=== PATIENT | female | born 1960 | race African-American/Black ===

== ENCOUNTER 2017-08-21 08:42 | Emergency (ER) | payer MEDICARE, OTHER ==
[~2017-08-21] VITALS: Ht 170.2 cm; Wt 81.0 kg
[~2017-08-21 08:42] MED LIST: ASPI-1160 PO; CARV12.545 PO; FURO-151 PO; LISI20TA PO; POTASSIUM PO; PREN-88 PO
[2017-08-21 11:43] VITALS: BP 123/76
== END 2017-08-21 11:10 | disposition home or self-care (01) ==
LOC: ER 08:42
DX: Z04.1 Encounter for examination and observation following transport accident (principal); I50.9 Heart failure, unspecified; Z79.82 Long term (current) use of aspirin; V49.88XA Car occupant (driver) (passenger) injured in other specified transport accidents, initial encounter; Y93.89 Activity, other specified; Y92.488 Other paved roadways as the place of occurrence of the external cause; Y99.8 Other external cause status
CPT/HCPCS: 99283

== ENCOUNTER 2020-01-25 14:07 | Emergency (ER) | payer MEDICARE, MEDICAID ==
[~2020-01-25] VITALS: Ht 167.6 cm; Wt 78.0 kg
[2020-01-25] MEDS ORDERED: ACETAMINOPHEN 500MG TABLET PO ONE (15:00)
[2020-01-25 15:32] LABS: BASOPHILS % 0.8 % (0.0-2.0); EOSINOPHILS % 2.8 % (0.0-5.0); HEMATOCRIT. 34.4 % (36.0-48.0); HEMOGLOBIN. 11.5 g/dL (12.0-16.0); LYMPHOCYTES % 30.5 % (20.0-50.0); MEAN CORPUSCULAR HEMOGLOBIN 27.3 pg (28.0-32.0); MEAN CORPUSCULAR VOLUME 81.8 fL (81.0-99.0); MEAN PLATELET VOLUME 8.1 fl (7.4-10.4); MONOCYTES % 7.5 % (2.0-8.0); NEUTROPHILS % 58.4 % (40.0-76.0); PLATELET 341 x1000/uL (130-400); RED BLOOD CELL COUNT 4.21 mill/uL (4.2-5.4); RED CELL DISTRIBUTION WIDTH 13.5 % (11.6-14.6)
[2020-01-25 15:39] LABS: INR 1.1; PROTHROMBIN TIME 11.8 sec (9.6-11.0)
[2020-01-25 15:41] LABS: CHLORIDE 101 mEq/L (98-107)
[2020-01-25] MEDS ORDERED: METRONIDAZOLE 500MG TABLET PO ONE (18:30)
[2020-01-25] MEDS ORDERED: CEFTRIAXONE 1 G PREMIX 50 ML IV ONE (18:30)
[2020-01-25] MEDS ORDERED: SODIUM CHLORIDE 0.9% 1,000 ML IV ONE (18:30)
[2020-01-25 19:14] VITALS: BP 120/65
[2020-01-25] MEDS ORDERED: IOHEXOL-300 100 ML BOTTLE ONE (20:48)
== END 2020-01-25 20:13 | disposition home or self-care (01) ==
LOC: ER 14:14
DX: K59.00 Constipation, unspecified (principal); K62.89 Other specified diseases of anus and rectum; I50.9 Heart failure, unspecified; N28.9 Disorder of kidney and ureter, unspecified; Z91.018 Allergy to other foods; Z90.710 Acquired absence of both cervix and uterus
CPT/HCPCS: 36415; 74177; 80053; 83690; 85025; 85610; 96365; 99284; J0696; J7030; Q9967

== ENCOUNTER 2020-02-10 16:27 | Emergency (ER) | payer MEDICARE, OTHER ==
[~2020-02-10] VITALS: Ht 167.6 cm; Wt 73.0 kg
[2020-02-10 16:46] VITALS: BP 104/71
[2020-02-10 19:20] LABS: CLARITY URINE CLOUDY (CLEAR); COLOR URINE DARK YELLOW (YELLOW); KETONES URINE NEGATIVE (NEGATIVE); LEUKOCYTE ESTERASE URINE 1+ (NEGATIVE); NITRITE URINE NEGATIVE (NEGATIVE); OCCULT BLOOD URINE NEGATIVE (NEGATIVE); PROTEIN URINE NEGATIVE (NEGATIVE); UROBILINOGEN URINE 0.2 E.U./dL (0.2-1.0)
[2020-02-10 19:25] LABS: BASOPHILS % 0.7 % (0.0-2.0); EOSINOPHILS % 1.5 % (0.0-5.0); HEMATOCRIT. 39.1 % (36.0-48.0); HEMOGLOBIN. 13.2 g/dL (12.0-16.0); LYMPHOCYTES % 34.5 % (20.0-50.0); MEAN CORPUSCULAR HEMOGLOBIN 28.1 pg (28.0-32.0); MONOCYTES % 7.7 % (2.0-8.0); NEUTROPHILS % 55.6 % (40.0-76.0); PLATELET 337 x1000/uL (130-400); RED BLOOD CELL COUNT 4.72 mill/uL (4.2-5.4); RED CELL DISTRIBUTION WIDTH 14.4 % (11.6-14.6)
[2020-02-10 19:31] LABS: CHLORIDE 100 mEq/L (98-107)
[2020-02-10 20:00] LABS: PROTHROMBIN TIME 11.3 sec (9.6-11.0)
[2020-02-10] MEDS ORDERED: POTASSIUM CHLORIDE 20MEQ TABLET SR PO ONE (23:00)
== END 2020-02-10 23:50 | disposition home or self-care (01) ==
LOC: ER 16:40
DX: N39.0 Urinary tract infection, site not specified (principal); R42 Dizziness and giddiness; R19.7 Diarrhea, unspecified; I13.0 Hypertensive heart and chronic kidney disease with heart failure and stage 1 through stage 4 chronic kidney disease, or unspecified chronic kidney disease; N18.9 Chronic kidney disease, unspecified; I50.9 Heart failure, unspecified; Z90.710 Acquired absence of both cervix and uterus; Z79.82 Long term (current) use of aspirin; Z91.018 Allergy to other foods
CPT/HCPCS: 36415; 71045; 74176; 80053; 81003; 82270; 83880; 85025; 87015; 87045; 87427; 87449; 87493; 89055; 93005; 99291

== ENCOUNTER 2020-04-18 10:33 | Emergency (ER) | payer MEDICARE, MEDICAID, OTHER ==
[~2020-04-18] VITALS: Ht 167.6 cm; Wt 68.0 kg
[2020-04-18] MEDS ORDERED: MORPHINE SULFATE 4 MG/ML CPJ (NOT FOR IM USE) IV STA (10:43)
[2020-04-18 11:26] LABS: CHLORIDE 102 mEq/L (98-107)
[2020-04-18 11:28] LABS: BASOPHILS % 0.1 % (0.0-2.0); EOSINOPHILS % 4.6 % (0.0-5.0); HEMATOCRIT. 27.3 % (36.0-48.0); HEMOGLOBIN. 9.5 g/dL (12.0-16.0); LYMPHOCYTES % 12.8 % (20.0-50.0); MEAN CORPUSCULAR HEMOGLOBIN 28.4 pg (28.0-32.0); MEAN CORPUSCULAR VOLUME 81.9 fL (81.0-99.0); MEAN PLATELET VOLUME 7.9 fl (7.4-10.4); MONOCYTES % 3.3 % (2.0-8.0); NEUTROPHILS % 79.2 % (40.0-76.0); PLATELET 145 x1000/uL (130-400); RED BLOOD CELL COUNT 3.33 mill/uL (4.2-5.4); RED CELL DISTRIBUTION WIDTH 13.6 % (11.6-14.6)
[2020-04-18 12:19] VITALS: BP 110/59
== END 2020-04-18 12:15 | disposition home or self-care (01) ==
LOC: ER 10:48
DX: R55 Syncope and collapse (principal); N28.9 Disorder of kidney and ureter, unspecified; Z85.048 Personal history of other malignant neoplasm of rectum, rectosigmoid junction, and anus; Z92.21 Personal history of antineoplastic chemotherapy; Z90.710 Acquired absence of both cervix and uterus; Z79.82 Long term (current) use of aspirin
CPT/HCPCS: 36415; 71045; 80053; 83880; 84484; 85025; 93005; 96374; 99285; J2270

== ENCOUNTER 2020-05-02 11:37 | Inpatient (IN) | payer MEDICARE, OTHER ==
[~2020-05-02] VITALS: Ht 165.1 cm; Wt 64.7 kg
[2020-05-02] MEDS ORDERED: SODIUM CHLORIDE 0.9% 1,000 ML IV ONE ×2 (12:11→19:30)
[2020-05-02] MEDS ORDERED: ONDANSETRON HCL 4MG/2ML INJ IV STA (12:11)
[2020-05-02] MEDS ORDERED: MORPHINE SULFATE 4 MG/ML CPJ (NOT FOR IM USE) IV STA (12:11)
[2020-05-02 13:31] LABS: HEMATOCRIT. 29.3 % (36.0-48.0); HEMOGLOBIN. 10.5 g/dL (12.0-16.0); MEAN CORPUSCULAR HEMOGLOBIN 29.1 pg (28.0-32.0); MEAN CORPUSCULAR VOLUME 81.2 fL (81.0-99.0); MEAN PLATELET VOLUME 7.4 fl (7.4-10.4); PLATELET 133 x1000/uL (130-400); RED CELL DISTRIBUTION WIDTH 12.9 % (11.6-14.6)
[2020-05-02 13:32] LABS: CHLORIDE 91 mEq/L (98-107)
[2020-05-02 14:42] LABS: INR 1.6; PARTIAL THROMBOPLASTIN TIME 26.8 sec (23.4-31.0); PROTHROMBIN TIME 17.2 sec (9.6-11.0)
[2020-05-02 14:46] LABS: PLATELET ESTIMATE NORMAL
[2020-05-02 15:16] LABS: D-DIMER > 35.20 mg/L FEU (<0.50)
[2020-05-02] MEDS ORDERED: ENOXAPARIN 60MG/0.6ML SYR SUBCUT ONE (15:30)
[2020-05-02] MEDS ORDERED: ASPIRIN 81MG TABLET PO ONE (15:30)
[2020-05-02] MEDS ORDERED: METRONIDAZOLE 500 MG PREMIX 100 ML IV ONE (15:45)
[2020-05-02] MEDS ORDERED: LEVOFLOXACIN 750MG PREMIX 150 ML IV ONE (15:45)
[2020-05-02] MEDS ORDERED: GUAIFENESIN 200MG/10ML SUGAR FREE UDC PO PRN (16:00)
[2020-05-02] MEDS ORDERED: ONDANSETRON HCL 4MG/2ML INJ IV PRN (16:00)
[2020-05-02] MEDS ORDERED: IPRATROPIUM/ALBUTEROL 0.5-3(2.5)MG/3ML NEB ORI PRN (16:00)
[2020-05-02] MEDS ORDERED: MAGNESIUM/ALUMINUM HYDROXIDE/SIMETHICONE 30ML UDC PO PRN (16:00)
[2020-05-02] MEDS ORDERED: FILGRASTIM 300 MCG/ML VIAL SUBCUT SCH (16:00)
[2020-05-02] MEDS ORDERED: NITROGLYCERIN 0.4MG TABLET SL SL PRN (16:00)
[2020-05-02] MEDS ORDERED: DOCUSATE SODIUM 100MG CAPSULE PO PRN (16:00)
[2020-05-02] MEDS ORDERED: ACETAMINOPHEN 325MG TABLET PO PRN ×2 (16:00)
[2020-05-02] MEDS ORDERED: CLONIDINE 0.1MG TABLET PO PRN (16:00)
[2020-05-02] MEDS ORDERED: TRAMADOL 50MG TABLET PO PRN (16:00)
[2020-05-02] MEDS ORDERED: CEFTRIAXONE 1 G PREMIX 50 ML IV SCH (18:00)
[2020-05-02] MEDS ORDERED: AZITHROMYCIN 500 MG in DEXT 5% WATER 250 ML IV SCH (18:00)
[2020-05-02 19:23] LABS: CLARITY URINE TURBID (CLEAR); COLOR URINE DK YELLOW (YELLOW); KETONES URINE NEGATIVE (NEGATIVE); LEUKOCYTE ESTERASE URINE 3+ (NEGATIVE); NITRITE URINE NEGATIVE (NEGATIVE); OCCULT BLOOD URINE 3+ (NEGATIVE); PH URINE 7.5 (4.5-8.0); PROTEIN URINE 3+ (NEGATIVE); SPECIFIC GRAVITY URINE 1.011 (1.005-1.030); UROBILINOGEN URINE 0.2 E.U./dL (0.2-1.0)
[2020-05-02] MEDS ORDERED: FAMOTIDINE 20MG TABLET PO SCH (21:00)
[2020-05-02] MEDS ORDERED: ENOXAPARIN 60MG/0.6ML SYR SUBCUT SCH (21:00)
[2020-05-02] MEDS ORDERED: FILGRASTIM-TBO 300 MCG/0.5 ML SYRINGE SQ SCH (21:00)
[2020-05-02 23:08] VITALS: BP 133/75
[2020-05-03] MEDS: ASCORBIC ACID 500 MG TABLET PO SCH ×3 (00:26→20:34)
[2020-05-03] MEDS: METRONIDAZOLE 500 MG PREMIX 100 ML IV SCH ×3 (02:00→20:34)
[2020-05-03 04:00] VITALS: BP 121/77
[2020-05-03 06:54] LABS: CREATINE KINASE MB FRACTION 3.4 ng/mL (0.5-3.6)
[2020-05-03] MEDS: ENOXAPARIN 60MG/0.6ML SYR SUBCUT SCH ×2 (07:46→17:55)
[2020-05-03 08:00] VITALS: BP 123/73
[2020-05-03] MEDS ORDERED: PNEUMOCOCCAL 23-VAL P-SAC VAC 0.5 ML IM ONE (08:00)
[2020-05-03] MEDS: ZINC SULFATE 220 MG ( 50 ) CAPSULE PO SCH (08:02)
[2020-05-03 09:00] VITALS: BP 123/73
[2020-05-03] MEDS ORDERED: ENOXAPARIN 40MG/0.4ML SYR SUBCUT SCH (09:00)
[2020-05-03] MEDS: PANTOPRAZOLE SODIUM 40 MG/VIAL IV SCH (10:59)
[2020-05-03] MEDS: ASPIRIN 325MG EC TABLET PO SCH (11:00)
[2020-05-03 12:00] VITALS: BP 117/62
[2020-05-03 12:14] LABS: HEMATOCRIT. 29.3 % (36.0-48.0); HEMOGLOBIN. 10.4 g/dL (12.0-16.0); MEAN CORPUSCULAR HEMOGLOBIN 28.6 pg (28.0-32.0); MEAN CORPUSCULAR VOLUME 80.7 fL (81.0-99.0); MEAN PLATELET VOLUME 7.5 fl (7.4-10.4); PLATELET 156 x1000/uL (130-400); RED BLOOD CELL COUNT 3.63 mill/uL (4.2-5.4)
[2020-05-03 13:12] LABS: PLATELET ESTIMATE NORMAL
[2020-05-03 16:00] VITALS: BP 133/83
[2020-05-03 16:30] LABS: CHLORIDE 98 mEq/L (98-107)
[2020-05-03 16:37] LABS: PHOSPHORUS 2.8 mg/dL (2.5-4.9)
[2020-05-03 16:40] LABS: LDL CHOLESTEROL 44 mg/dL (5-100)
[2020-05-03 16:41] LABS: HDL CHOLESTEROL 59 mg/dL (40-59)
[2020-05-03] MEDS: AZITHROMYCIN 500 MG in DEXT 5% WATER 250 ML IV SCH (18:56)
[2020-05-03 20:00] VITALS: BP_SYST 106; BP_SYST 127; BP_SYST 132; BP_DIAS 75; BP_DIAS 76; BP_DIAS 82
[2020-05-03] MEDS: CEFTRIAXONE 1 G PREMIX 50 ML IV SCH (22:33)
[2020-05-04] VITALS (12 sets, daily range): BP systolic 119–135; BP diastolic 56–95
[2020-05-04] MEDS: METRONIDAZOLE 500 MG PREMIX 100 ML IV SCH ×3 (01:22→16:51)
[2020-05-04] MEDS: ENOXAPARIN 60MG/0.6ML SYR SUBCUT SCH ×2 (05:15→18:03)
[2020-05-04 07:15] LABS: HEMATOCRIT. 30.2 % (36.0-48.0); HEMOGLOBIN. 10.7 g/dL (12.0-16.0); MEAN CORPUSCULAR HEMOGLOBIN 28.6 pg (28.0-32.0); MEAN CORPUSCULAR VOLUME 80.3 fL (81.0-99.0); MEAN PLATELET VOLUME 7.8 fl (7.4-10.4); PLATELET 189 x1000/uL (130-400); RED BLOOD CELL COUNT 3.76 mill/uL (4.2-5.4); RED CELL DISTRIBUTION WIDTH 13.1 % (11.6-14.6)
[2020-05-04 07:19] LABS: CHLORIDE 98 mEq/L (98-107)
[2020-05-04] MEDS: ASCORBIC ACID 500 MG TABLET PO SCH ×2 (09:21→20:24)
[2020-05-04] MEDS: ASPIRIN 325MG EC TABLET PO SCH (09:21)
[2020-05-04] MEDS: ZINC SULFATE 220 MG ( 50 ) CAPSULE PO SCH (09:21)
[2020-05-04] MEDS: PANTOPRAZOLE SODIUM 40 MG/VIAL IV SCH (09:21)
[2020-05-04] MEDS ORDERED: POTASSIUM CHLORIDE 20MEQ TABLET SR PO SCH ×2 (11:00→11:30)
[2020-05-04 11:06] LABS: PLATELET ESTIMATE NORMAL
[2020-05-04] MEDS: SODIUM CHLORIDE 0.9% 1,000 ML IV SCH (11:34)
[2020-05-04] MEDS: LACTOBACILLUS GG CAPSULE PO SCH (12:25)
[2020-05-04] MEDS: VANCOMYCIN HCL 1000 MG/20 ML ORAL PO SCH ×3 (12:25→20:24)
[2020-05-04] MEDS: HEMORRHOIDAL SUPP PR SCH ×2 (16:30→18:03)
[2020-05-04] MEDS: AZITHROMYCIN 500 MG in DEXT 5% WATER 250 ML IV SCH (19:18)
[2020-05-04] MEDS: ZOLPIDEM TARTRATE 5MG TABLET PO PRN (20:25)
[2020-05-04] MEDS: LORAZEPAM 0.5MG TABLET PO PRN (20:25)
[2020-05-05] VITALS (11 sets, daily range): BP systolic 116–154; BP diastolic 70–97
[2020-05-05] MEDS: CEFTRIAXONE 1 G PREMIX 50 ML IV SCH ×2 (00:02→22:46)
[2020-05-05] MEDS: LORAZEPAM 0.5MG TABLET PO PRN (00:02)
[2020-05-05] MEDS: SODIUM CHLORIDE 0.9% 1,000 ML IV SCH ×2 (00:03→13:41)
[2020-05-05] MEDS: METRONIDAZOLE 500 MG PREMIX 100 ML IV SCH ×3 (01:03→17:18)
[2020-05-05] MEDS: ENOXAPARIN 60MG/0.6ML SYR SUBCUT SCH ×2 (05:57→16:50)
[2020-05-05 07:56] LABS: HEMATOCRIT. 26.2 % (36.0-48.0); HEMOGLOBIN. 9.2 g/dL (12.0-16.0); MEAN CORPUSCULAR HEMOGLOBIN 28.1 pg (28.0-32.0); MEAN CORPUSCULAR VOLUME 80.2 fL (81.0-99.0); MEAN PLATELET VOLUME 7.1 fl (7.4-10.4); PLATELET 190 x1000/uL (130-400); RED BLOOD CELL COUNT 3.27 mill/uL (4.2-5.4); RED CELL DISTRIBUTION WIDTH 12.9 % (11.6-14.6)
[2020-05-05 08:03] LABS: CHLORIDE 101 mEq/L (98-107)
[2020-05-05 08:08] LABS: PHOSPHORUS 2.1 mg/dL (2.5-4.9)
[2020-05-05] MEDS: HEMORRHOIDAL SUPP PR SCH ×2 (09:00→21:00)
[2020-05-05] MEDS: PANTOPRAZOLE SODIUM 40 MG/VIAL IV SCH (10:44)
[2020-05-05] MEDS: LACTOBACILLUS GG CAPSULE PO SCH (10:45)
[2020-05-05] MEDS: ASCORBIC ACID 500 MG TABLET PO SCH ×2 (10:45→21:00)
[2020-05-05] MEDS: ZINC SULFATE 220 MG ( 50 ) CAPSULE PO SCH (10:45)
[2020-05-05] MEDS: ASPIRIN 325MG EC TABLET PO SCH (10:45)
[2020-05-05] MEDS: VANCOMYCIN HCL 1000 MG/20 ML ORAL PO SCH ×4 (10:49→21:01)
[2020-05-05] MEDS ORDERED: POTASSIUM CHLORIDE 20MEQ TABLET SR PO NR (11:30)
[2020-05-05 17:16] LABS: PLATELET ESTIMATE NORMAL
[2020-05-05 18:31] LABS: CLARITY URINE CLOUDY (CLEAR); COLOR URINE DARK YELLOW (YELLOW); KETONES URINE TRACE (NEGATIVE); LEUKOCYTE ESTERASE URINE 1+ (NEGATIVE); NITRITE URINE POSITIVE (NEGATIVE); OCCULT BLOOD URINE NEGATIVE (NEGATIVE); PROTEIN URINE 2+ (NEGATIVE); SPECIFIC GRAVITY URINE 1.037 (1.005-1.030); UROBILINOGEN URINE 0.2 E.U./dL (0.2-1.0)
[2020-05-05] MEDS: CARVEDILOL 6.25 MG TABLET PO SCH (21:00)
[2020-05-06] VITALS (12 sets, daily range): BP systolic 95–136; BP diastolic 56–98
[2020-05-06] MEDS: METRONIDAZOLE 500 MG PREMIX 100 ML IV SCH ×2 (01:22→09:45)
[2020-05-06] MEDS: SODIUM CHLORIDE 0.9% 1,000 ML IV SCH ×2 (04:29→17:20)
[2020-05-06 05:09] LABS: CHLORIDE 105 mEq/L (98-107)
[2020-05-06 05:12] LABS: HEMATOCRIT. 28.2 % (36.0-48.0); HEMOGLOBIN. 10.1 g/dL (12.0-16.0); MEAN CORPUSCULAR HEMOGLOBIN 28.8 pg (28.0-32.0); MEAN CORPUSCULAR VOLUME 80.3 fL (81.0-99.0); MEAN PLATELET VOLUME 7.1 fl (7.4-10.4); PLATELET 276 x1000/uL (130-400); RED BLOOD CELL COUNT 3.51 mill/uL (4.2-5.4); RED CELL DISTRIBUTION WIDTH 13.1 % (11.6-14.6)
[2020-05-06 05:18] LABS: PHOSPHORUS 1.8 mg/dL (2.5-4.9)
[2020-05-06] MEDS: ENOXAPARIN 60MG/0.6ML SYR SUBCUT SCH ×2 (05:33→18:51)
[2020-05-06 06:51] LABS: PLATELET ESTIMATE NORMAL
[2020-05-06] MEDS: HEMORRHOIDAL SUPP PR SCH ×2 (09:00→20:01)
[2020-05-06] MEDS: ASCORBIC ACID 500 MG TABLET PO SCH ×2 (09:42→19:59)
[2020-05-06] MEDS: LOSARTAN POTASSIUM 25 MG TABLET PO SCH (09:43)
[2020-05-06] MEDS: PANTOPRAZOLE SODIUM 40 MG/VIAL IV SCH (09:43)
[2020-05-06] MEDS: CARVEDILOL 6.25 MG TABLET PO SCH ×2 (09:43→20:12)
[2020-05-06] MEDS: ZINC SULFATE 220 MG ( 50 ) CAPSULE PO SCH (09:44)
[2020-05-06] MEDS: ASPIRIN 325MG EC TABLET PO SCH (09:44)
[2020-05-06] MEDS: VANCOMYCIN HCL 1000 MG/20 ML ORAL PO SCH ×4 (09:44→20:00)
[2020-05-06] MEDS: LACTOBACILLUS GG CAPSULE PO SCH (09:44)
[2020-05-06] MEDS ORDERED: METRONIDAZOLE 500MG TABLET PO SCH (18:00)
[2020-05-06] MEDS: ZOLPIDEM TARTRATE 5MG TABLET PO PRN (19:59)
[2020-05-07] VITALS (16 sets, daily range): BP systolic 102–132; BP diastolic 47–87
[2020-05-07] MEDS: ENOXAPARIN 60MG/0.6ML SYR SUBCUT SCH ×2 (06:12→16:41)
[2020-05-07] MEDS: LACTOBACILLUS GG CAPSULE PO SCH (08:29)
[2020-05-07] MEDS: ZINC SULFATE 220 MG ( 50 ) CAPSULE PO SCH (08:29)
[2020-05-07] MEDS: ASCORBIC ACID 500 MG TABLET PO SCH ×2 (08:29→20:23)
[2020-05-07] MEDS: LOSARTAN POTASSIUM 25 MG TABLET PO SCH (08:30)
[2020-05-07] MEDS: PANTOPRAZOLE SODIUM 40 MG/VIAL IV SCH (08:30)
[2020-05-07] MEDS: ASPIRIN 325MG EC TABLET PO SCH (08:30)
[2020-05-07] MEDS: VANCOMYCIN HCL 1000 MG/20 ML ORAL PO SCH ×4 (08:35→21:42)
[2020-05-07] MEDS: HEMORRHOIDAL SUPP PR SCH ×2 (08:35→20:24)
[2020-05-07] MEDS: CARVEDILOL 6.25 MG TABLET PO SCH ×2 (08:39→20:24)
[2020-05-07] MEDS ORDERED: SODIUM PHOS,M-BASIC-D-BASIC 15 MM in DEXT 5% WATER 245 ML IV SCH (12:00)
[2020-05-07] MEDS: SODIUM CHLORIDE 0.9% 1,000 ML IV SCH ×2 (12:01→20:28)
[2020-05-07] MEDS: FLUCONAZOLE 100MG TABLET PO SCH ×2 (17:18→17:38)
[2020-05-08] VITALS (14 sets, daily range): BP systolic 99–127; BP diastolic 49–92
[2020-05-08] MEDS: ENOXAPARIN 60MG/0.6ML SYR SUBCUT SCH ×2 (05:27→17:48)
[2020-05-08] MEDS: HEMORRHOIDAL SUPP PR SCH ×2 (09:00→21:00)
[2020-05-08] MEDS: FLUCONAZOLE 100MG TABLET PO SCH (09:02)
[2020-05-08] MEDS: ZINC SULFATE 220 MG ( 50 ) CAPSULE PO SCH (09:02)
[2020-05-08] MEDS: PANTOPRAZOLE SODIUM 40 MG/VIAL IV SCH (09:02)
[2020-05-08] MEDS: ASCORBIC ACID 500 MG TABLET PO SCH ×2 (09:02→21:50)
[2020-05-08] MEDS: LACTOBACILLUS GG CAPSULE PO SCH (09:02)
[2020-05-08] MEDS: ASPIRIN 325MG EC TABLET PO SCH (09:03)
[2020-05-08] MEDS: LOSARTAN POTASSIUM 25 MG TABLET PO SCH (09:03)
[2020-05-08] MEDS: CARVEDILOL 6.25 MG TABLET PO SCH ×2 (09:03→21:52)
[2020-05-08] MEDS: VANCOMYCIN HCL 1000 MG/20 ML ORAL PO SCH ×4 (09:05→21:52)
[2020-05-09] VITALS (15 sets, daily range): BP systolic 105–138; BP diastolic 64–86
[2020-05-09] MEDS: ENOXAPARIN 60MG/0.6ML SYR SUBCUT SCH ×2 (05:24→17:12)
[2020-05-09 08:20] LABS: CHLORIDE 106 mEq/L (98-107)
[2020-05-09] MEDS: LACTOBACILLUS GG CAPSULE PO SCH (08:29)
[2020-05-09] MEDS: PANTOPRAZOLE SODIUM 40 MG/VIAL IV SCH (08:29)
[2020-05-09] MEDS: ZINC SULFATE 220 MG ( 50 ) CAPSULE PO SCH (08:30)
[2020-05-09] MEDS: SODIUM CHLORIDE 0.9% 1,000 ML IV SCH (08:30)
[2020-05-09] MEDS: ASCORBIC ACID 500 MG TABLET PO SCH ×2 (08:30→21:21)
[2020-05-09] MEDS: ASPIRIN 325MG EC TABLET PO SCH (08:30)
[2020-05-09] MEDS: HEMORRHOIDAL SUPP PR SCH ×2 (08:30→09:00)
[2020-05-09] MEDS: FLUCONAZOLE 100MG TABLET PO SCH (08:30)
[2020-05-09 08:49] LABS: HEMATOCRIT. 25.1 % (36.0-48.0); MEAN CORPUSCULAR HEMOGLOBIN 28.9 pg (28.0-32.0); MEAN CORPUSCULAR VOLUME 80.4 fL (81.0-99.0); MEAN PLATELET VOLUME 7.3 fl (7.4-10.4); PLATELET 264 x1000/uL (130-400); RED BLOOD CELL COUNT 3.12 mill/uL (4.2-5.4); RED CELL DISTRIBUTION WIDTH 13.3 % (11.6-14.6)
[2020-05-09] MEDS: LOSARTAN POTASSIUM 25 MG TABLET PO SCH (10:08)
[2020-05-09] MEDS: CARVEDILOL 6.25 MG TABLET PO SCH ×2 (10:09→21:00)
[2020-05-09] MEDS: VANCOMYCIN HCL 1000 MG/20 ML ORAL PO SCH ×4 (10:09→21:22)
[2020-05-09 13:40] LABS: NUCLEATED RED BLOOD CELLS 2 /100 WBC; PLATELET ESTIMATE NORMAL
[2020-05-09] MEDS ORDERED: FUROSEMIDE 20MG/2ML VIAL IVP NR (14:00)
[2020-05-10] VITALS (9 sets, daily range): BP systolic 106–123; BP diastolic 66–80
[2020-05-10] MEDS: ENOXAPARIN 60MG/0.6ML SYR SUBCUT SCH (06:37)
[2020-05-10] MEDS: ASPIRIN 325MG EC TABLET PO SCH (08:42)
[2020-05-10] MEDS: LACTOBACILLUS GG CAPSULE PO SCH (08:42)
[2020-05-10] MEDS: ZINC SULFATE 220 MG ( 50 ) CAPSULE PO SCH (08:42)
[2020-05-10] MEDS: ASCORBIC ACID 500 MG TABLET PO SCH (08:42)
[2020-05-10] MEDS: FLUCONAZOLE 100MG TABLET PO SCH (08:42)
[2020-05-10] MEDS: LOSARTAN POTASSIUM 25 MG TABLET PO SCH (08:45)
[2020-05-10] MEDS: HEMORRHOIDAL SUPP PR SCH (08:45)
[2020-05-10] MEDS: CARVEDILOL 6.25 MG TABLET PO SCH (08:45)
[2020-05-10] MEDS: PANTOPRAZOLE SODIUM 40 MG/VIAL IV SCH (08:47)
[2020-05-10] MEDS: VANCOMYCIN HCL 1000 MG/20 ML ORAL PO SCH ×2 (08:47→13:00)
[2020-05-13] MEDS ORDERED: ONDA8TAB59 PO (00:51)
[2020-05-13] MEDS ORDERED: FERR-54 MT (00:51)
[2020-05-13] MEDS ORDERED: ENOX40DI8 SQ (00:51)
[2020-05-13] MEDS ORDERED: FLUC200T51 PO (00:51)
[2020-05-13] MEDS ORDERED: SUCR1TAB MT (00:51)
[2020-05-13] MEDS ORDERED: VANC250C12 MT (00:51)
== END 2020-05-10 13:50 | disposition home health service (06) | DRG 871 ==
LOC: ER 11:37 → MICUSO 15:31 → SUPCPDRO 15:59 → 7WST 22:39 → 3WST 05-03 23:35
PROVIDERS: ADMIT Internal Medicine; ATTEND Internal Medicine
PROC: 05H533Z Insertion of Infusion Device into Right Subclavian Vein, Percutaneous Approach (ICD-10-PCS; principal; 2020-05-07)
PROC: B546ZZA Ultrasonography of Right Subclavian Vein, Guidance (ICD-10-PCS; 2020-05-07)
DX: A41.9 Sepsis, unspecified organism (principal); I21.4 Non-ST elevation (NSTEMI) myocardial infarction; E43 Unspecified severe protein-calorie malnutrition; I82.402 Acute embolism and thrombosis of unspecified deep veins of left lower extremity; E87.1 Hypo-osmolality and hyponatremia; I13.0 Hypertensive heart and chronic kidney disease with heart failure and stage 1 through stage 4 chronic kidney disease, or unspecified chronic kidney disease; I42.0 Dilated cardiomyopathy; A04.72 Enterocolitis due to Clostridium difficile, not specified as recurrent; N39.0 Urinary tract infection, site not specified; B49 Unspecified mycosis; C20 Malignant neoplasm of rectum; I50.42 Chronic combined systolic (congestive) and diastolic (congestive) heart failure; N18.9 Chronic kidney disease, unspecified; E11.22 Type 2 diabetes mellitus with diabetic chronic kidney disease; D63.8 Anemia in other chronic diseases classified elsewhere; E86.1 Hypovolemia; G90.8 Other disorders of autonomic nervous system; Z20.828 Contact with and (suspected) exposure to other viral communicable diseases; D70.1 Agranulocytosis secondary to cancer chemotherapy; D49.0 Neoplasm of unspecified behavior of digestive system; T45.1X5A Adverse effect of antineoplastic and immunosuppressive drugs, initial encounter; E78.5 Hyperlipidemia, unspecified; E86.0 Dehydration; Z85.048 Personal history of other malignant neoplasm of rectum, rectosigmoid junction, and anus; Z79.82 Long term (current) use of aspirin; Z79.84 Long term (current) use of oral hypoglycemic drugs; Z79.899 Other long term (current) drug therapy; Z90.710 Acquired absence of both cervix and uterus; Z68.23 Body mass index [BMI] 23.0-23.9, adult; Z82.49 Family history of ischemic heart disease and other diseases of the circulatory system; Z83.3 Family history of diabetes mellitus; Z80.9 Family history of malignant neoplasm, unspecified
CPT/HCPCS: 36415; 36573; 71045; 74176; 78580; 80048; 80053; 80061; 81003; 82550; 82553; 83036; 83605; 83735; 83880; 84100; 84134; 84443; 84484; 85025; 85379; 87106; 87493; 89055; 90732; 93005; 93306; 93970; 96372; 97110; 97162; 97166; 97530; 97535; 99291; C1725; C9113; J0456; J0696; J1442; J1650; J1940; J1956; J3370; J3490; J7030; J7060; U0003-CS